=== PATIENT | female | born 1930 | race Caucasian/White ===

== ENCOUNTER → 2018-11-03 | Outpatient (CLI) | payer MEDICARE ==
--- NOTE | 2018-11-03 17:29 | PCVCIMAG ---
EXAM: LEFT LOWER EXTREMITY ARTERIAL DUPLEX INDICATION: Peripheral Arterial Disease. Leg pain. Nonhealing ulcer left great toe. FINDINGS: Left Leg: Common femoral profunda femoral arteries are patent. Superficial femoral artery and popliteal artery are patent. Anterior tibial and posterior tibial arteries are patent. The peroneal artery is occluded or diminutive in size. IMPRESSION: The left peroneal artery is diminutive in size or occluded. Otherwise no flow limiting stenosis in the left lower extremity. LOC:[place] [id number]
== END | disposition home or self-care (01) ==
LOC: PCVCIMAG 15:17
PROVIDERS: ATTEND Emergency Medicine
DX: I73.9 Peripheral vascular disease, unspecified (principal); M79.605 Pain in left leg; L97.909 Non-pressure chronic ulcer of unspecified part of unspecified lower leg with unspecified severity; S91.302A Unspecified open wound, left foot, initial encounter
CPT/HCPCS: 93926